=== PATIENT | female | born 1995 | race African-American/Black ===

== ENCOUNTER 2017-05-26 19:57 | Emergency (ER) | payer MEDICAID ==
[~2017-05-26] VITALS: Ht 177.8 cm; Wt 62.3 kg
[~2017-05-26 19:57] MED LIST: ACNE MED; CETIRIZINE; DEPO-PROVER150 MG/M1 IM; DEPO-PROVER150 MG/ML IM; DOXYCYCLINE 10100 MG PO; DOXYCYCLINE HY100 MG; FLAGYL500 MG PO; LEXAPRO10 MG PO; LORTAB 5/500 501 TAB PO; MACROBID 1100 MG/CAP PO; MOTRIN 600600 MG/TAB PO; MOTRIN 800800 MG/TAB PO; NEXPLANON68 MG ID; NO HOME MEDICATIONS; NORCO 325 MG-51 TAB PO; PEPCID 20MG TAB20 MG PO; PERCOCET 325 MG1 TA2 PO; PHENERGAN25 MG RC; PRENATAL1 TA2 PO; PREVACID 15MG15 M1 PO; PROMETHAZINE12.5 M5 PO; TYLENOL 325MG325 MG PO; VIT B-6100 MG PO; ZOFRAN 4MG T4 MG/TAB PO; ZOFRAN ODT4 MG PO; ZOFRAN4 M1 PO; ZOVIRAX400 MG PO
[2017-05-26 19:58] VITALS: TEMP 98
[2017-05-26] MEDS ORDERED: LEXAPRO20 MG PO (20:01)
[2017-05-26] MEDS ORDERED: DOXYCYCLINE 50M50 MG PO (20:01)
[2017-05-26 20:41] LABS: COLLECTION METHOD CLEAN CATCH
[2017-05-26 20:45] LABS: BASO % 0.3 % (0.0-2.0); EOS # 0.1 (0.0-0.7); EOS % 1.8 % (0-4.0); GRAN # 3.4 (1.4-6.5); GRAN % 51.6 % (42.2-75.2); HEMOGLOBIN 12.3 g/dl (12.5-16.0); LYMPH # 2.5 (1.2-3.4); LYMPH % 38.3 % (20.0-51.0); MEAN CELL VOLUME 94 fl (80.0-100.0); MEAN CORPUSCULAR HEMOGLOBIN 33 pg (27.0-31.0); MEAN CORPUSCULAR HGB CONC 35 g/dl (33.0-37.0); MEAN PLATELET VOLUME 10.3 fl (7.4-10.4); MONO # 0.5 (0.1-0.6); MONO % 7.7 % (1.7-9.3); PLATELET COUNT 154 K/mm3 (130-400); RED BLOOD COUNT 3.76 M/mm3 (4.10-5.30); WHITE BLOOD COUNT 6.6 K/mm3 (4.8-10.8)
[2017-05-26 20:46] LABS: HEMATOCRIT 35.5 % (37.0-47.0)
[2017-05-26 20:55] LABS: MUCOUS Present /lpf; PH 5 (5-8); SQUAMOUS EPITHELIAL 0-2 /hpf; URINE APPEARANCE Clear; URINE BACTERIA None Seen /hpf; URINE BILIRUBIN Negative (NEGATIVE); URINE BLOOD Negative (NEGATIVE); URINE COLOR Yellow; URINE GLUCOSE Negative (NEGATIVE); URINE KETONE Negative (NEGATIVE); URINE LEUKOCYTE ESTERASE Negative (NEGATIVE); URINE PROTEIN(semi-quant) Negative (NEGATIVE); URINE RBC 0-2 /hpf; URINE UROBILINOGEN Negative (NEGATIVE); URINE WBC 0-2 /hpf
[2017-05-26 20:56] LABS: ADJUSTED CALCIUM 9.2 mg/dL (8.4-10.2); ALBUMIN 4.3 gm/dL (3.5-5.0); BILIRUBIN,TOTAL 0.1 mg/dL (0.0-1.0); CALCIUM 9.4 mg/dL (8.4-10.2); CREATININE, serum 0.61 mg/dL (0.52-1.25); POTASSIUM 3.7 mmol/L (3.4-5.0); TOTAL PROTEIN 7.1 gm/dL (6.4-8.2)
[2017-05-26 22:31] VITALS: BP 120/71; PULSE 67
[2017-05-26 23:16] LABS: CHLAMYDIA/TRACH by PCR Female NOT DETECTED; NEISSERIA GON by PCR Female NOT DETECTED
== END 2017-05-26 22:32 | disposition home or self-care (01) ==
LOC: COL.ER 19:57
PROVIDERS: Physician Assistant
DX: O21.9 Vomiting of pregnancy, unspecified (principal); O99.331 Smoking (tobacco) complicating pregnancy, first trimester; F17.210 Nicotine dependence, cigarettes, uncomplicated; Z3A.00 Weeks of gestation of pregnancy not specified
CPT/HCPCS: J2550; J7030

== ENCOUNTER 2017-11-19 09:11 | Emergency (ER) | payer MEDICAID ==
[~2017-11-19] VITALS: Ht 177.8 cm; Wt 68.6 kg
[~2017-11-19 09:11] MED LIST changes: +DOXYCYCLINE 50M50 MG PO; +LEXAPRO20 MG PO
[2017-11-19 09:23] VITALS: BP 124/78; PULSE 64; TEMP 98.4
[2017-11-19 10:06] LABS: BASO % 0.2 % (0.0-2.0); EOS # 0.1 (0.0-0.7); EOS % 1.4 % (0-4.0); GRAN # 2.3 (1.4-6.5); GRAN % 54.8 % (42.2-75.2); HEMATOCRIT 37.8 % (37.0-47.0); HEMOGLOBIN 13.6 g/dl (12.5-16.0); LYMPH # 1.6 (1.2-3.4); MEAN CELL VOLUME 89 fl (80.0-100.0); MEAN CORPUSCULAR HEMOGLOBIN 32 pg (27.0-31.0); MEAN CORPUSCULAR HGB CONC 36 g/dl (33.0-37.0); MEAN PLATELET VOLUME 9.7 fl (7.4-10.4); MONO # 0.3 (0.1-0.6); MONO % 6.4 % (1.7-9.3); PLATELET COUNT 197 K/mm3 (130-400); RED BLOOD COUNT 4.24 M/mm3 (4.10-5.30); REDCELL DISTRIBUTION WIDTH-CV 12.3 % (11.5-14.5)
[2017-11-19 10:09] LABS: COLLECTION METHOD CLEAN CATCH
[2017-11-19 10:19] LABS: ALBUMIN 4.4 gm/dL (3.5-5.0); BILIRUBIN,TOTAL 0.8 mg/dL (0.0-1.0); CALCIUM 9.5 mg/dL (8.4-10.2); CREATININE, serum 0.88 mg/dL (0.52-1.25); POTASSIUM 3.5 mmol/L (3.4-5.0); TOTAL PROTEIN 8.6 gm/dL (6.4-8.2)
[2017-11-19 10:24] LABS: MUCOUS Present /lpf; PH 5 (5-8); URINE APPEARANCE Hazy; URINE BACTERIA None Seen /hpf; URINE BILIRUBIN Negative (NEGATIVE); URINE BLOOD Negative (NEGATIVE); URINE COLOR Yellow; URINE GLUCOSE Negative (NEGATIVE); URINE KETONE 1+ (NEGATIVE); URINE LEUKOCYTE ESTERASE Negative (NEGATIVE); URINE NITRATE Negative (NEGATIVE); URINE PROTEIN(semi-quant) Negative (NEGATIVE); URINE RBC 0-2 /hpf
[2017-11-19] MEDS ORDERED: ZOFRAN ODT4 MG PO (10:42)
[2017-11-19] MEDS ORDERED: ATARAX50 MG PO (10:42)
== END 2017-11-19 11:52 | disposition home or self-care (01) ==
LOC: COL.ER 09:11
PROVIDERS: Physician Assistant
DX: F41.9 Anxiety disorder, unspecified (principal); R11.2 Nausea with vomiting, unspecified; E86.0 Dehydration; F17.210 Nicotine dependence, cigarettes, uncomplicated; F41.0 Panic disorder [episodic paroxysmal anxiety]
CPT/HCPCS: J2550; J7030

== ENCOUNTER 2018-02-19 09:43 | Emergency (ER) | payer MEDICAID ==
[~2018-02-19] VITALS: Ht 177.8 cm; Wt 68.2 kg
[~2018-02-19 09:43] MED LIST changes: +ATARAX50 MG PO
[2018-02-19 09:52] VITALS: TEMP 99
[2018-02-19] MEDS ORDERED: DEPO-PROVER150 MG/M1 IM (10:10)
[2018-02-19] MEDS ORDERED: INTUNIV1 MG PO (10:11)
[2018-02-19] MEDS ORDERED: ATIVAN 0.50.5 MG/TAB PO (10:11)
[2018-02-19] MEDS ORDERED: ZOVIRAX400 MG PO (10:12)
[2018-02-19 10:21] LABS: COLLECTION METHOD CLEAN CATCH
[2018-02-19 10:26] LABS: MUCOUS Present /lpf; PH 7 (5-8); SQUAMOUS EPITHELIAL 0-2 /hpf; URINE APPEARANCE Clear; URINE BACTERIA None Seen /hpf; URINE BILIRUBIN Negative (NEGATIVE); URINE BLOOD Negative (NEGATIVE); URINE COLOR Yellow; URINE GLUCOSE Negative (NEGATIVE); URINE KETONE Negative (NEGATIVE); URINE LEUKOCYTE ESTERASE Negative (NEGATIVE); URINE NITRATE Negative (NEGATIVE); URINE PROTEIN(semi-quant) Negative (NEGATIVE); URINE RBC 0-2 /hpf; URINE UROBILINOGEN Negative (NEGATIVE)
[2018-02-19 11:36] LABS: BASO % 0.4 % (0.0-2.0); EOS # 0.1 (0.0-0.7); EOS % 1.1 % (0-4.0); GRAN # 3.6 (1.4-6.5); GRAN % 65.6 % (42.2-75.2); HEMATOCRIT 41.2 % (37.0-47.0); HEMOGLOBIN 14.3 g/dl (12.5-16.0); LYMPH # 1.5 (1.2-3.4); LYMPH % 26.7 % (20.0-51.0); MEAN CELL VOLUME 91 fl (80.0-100.0); MEAN CORPUSCULAR HEMOGLOBIN 32 pg (27.0-31.0); MEAN CORPUSCULAR HGB CONC 35 g/dl (33.0-37.0); MEAN PLATELET VOLUME 9.9 fl (7.4-10.4); MONO # 0.3 (0.1-0.6); PLATELET COUNT 211 K/mm3 (130-400); RED BLOOD COUNT 4.54 M/mm3 (4.10-5.30); REDCELL DISTRIBUTION WIDTH-CV 12.5 % (11.5-14.5)
[2018-02-19 11:48] LABS: ALBUMIN 4.7 gm/dL (3.5-5.0); BILIRUBIN,TOTAL 0.3 mg/dL (0.0-1.0); C-REACTIVE PROTEIN 0.7 mg/dL (0.0-0.9); CALCIUM 9.7 mg/dL (8.4-10.2); CREATININE, serum 0.85 mg/dL (0.52-1.25); POTASSIUM 3.8 mmol/L (3.4-5.0); TOTAL PROTEIN 8.3 gm/dL (6.4-8.2)
[2018-02-19] MEDS ORDERED: MOTRIN 800800 MG/TAB PO (12:08)
[2018-02-19 12:15] VITALS: BP 113/85; PULSE 69
[2018-02-19] MEDS ORDERED: DOXYCYCLINE 10100 MG PO ×4 (13:32→13:35)
[2018-02-19] MEDS ORDERED: PHENERGAN 25 TA25 MG PO (17:48)
== END 2018-02-19 12:18 | disposition home or self-care (01) ==
LOC: COL.ER 09:43
PROVIDERS: Nurse Practitioner
DX: R10.30 Lower abdominal pain, unspecified (principal); F41.9 Anxiety disorder, unspecified; F17.210 Nicotine dependence, cigarettes, uncomplicated

== ENCOUNTER 2018-09-28 21:42 | Emergency (ER) | payer MEDICAID ==
[~2018-09-28] VITALS: Ht 175.3 cm; Wt 70.5 kg
[~2018-09-28 21:42] MED LIST changes: +ATIVAN 0.50.5 MG/TAB PO; +INTUNIV1 MG PO; +PHENERGAN 25 TA25 MG PO
[2018-09-28 21:49] VITALS: BP 118/73; TEMP 98.4
[2018-09-28] MEDS ORDERED: XANAX 0.5MG0.5 MG PO (22:24)
[2018-09-28] MEDS ORDERED: CYMBALTA 60MG60 MG PO (22:24)
[2018-09-28 22:38] VITALS: PULSE 70
== END 2018-09-28 22:42 | disposition home or self-care (01) ==
LOC: COL.ER 21:42
DX: F41.9 Anxiety disorder, unspecified (principal)